=== PATIENT | male | born 1990 | race Caucasian/White ===

== ENCOUNTER 2020-07-05 16:39 | Emergency (ER) | payer BC, SELFPAY ==
[2020-07-05 16:45] VITALS: BP 129/79; PULSE 78; RESP 16; TEMP 36.8; O2SAT 100
--- NOTE | 2020-07-05 16:48 | ED.SKABFB ---
HPI - Skin/Abscess/Foreign Bdy General Chief complaint: Skin/Abscess/Foreign Body Stated complaint: poison luisa Time Seen by Provider: 07/05/20 16:45 Source: patient and RN notes reviewed Mode of arrival: ambulatory Limitations: no limitations History of Present Illness HPI narrative: 29-year-old male presents with concern for poison luisa to the left side of the neck and left ear. Reports exposure to poison luisa on Thursday with rash appearing Thursday night. Denies intervention. Reports history of poison luisa reaction. Denies swollen lips, swollen tongue, difficulty swallowing, trouble breathing. MD complaint: rash Related Data Allergies Allergy/AdvReac Type Severity Reaction Status Date / Time No Known Allergies Allergy Unknown Unverified 10/04/18 18:15 Review of Systems Review of Systems: Narrative: CONSTITUTIONAL: Denies malaise, chills, sweats, or fever. EYES: Denies visual changes, redness, or discharge. ENT: Denies swollen lips, swollen tongue, difficulty swallowing CARDIOVASCULAR: Denies chest pain, palpitations, or edema. RESPIRATORY: Denies cough or dyspnea. GASTROINTESTINAL: Denies abdominal pain, nausea, vomiting, diarrhea SKIN: Reports itchy rash on the left side of the neck and ear All systems reviewed & are unremarkable except as noted in HPI and below PMFSH Social History Social History Gender identity (if verbalized by the patient): Male Comments At time of signature, agree with nursing past medical, surgical, social and family history. There is no relevant family history pertinent to the presenting complaint Exam Narrative: Exam Narrative: GENERAL: Well-appearing, well-nourished, and in no acute distress. HEAD: Normocephalic, atraumatic. EYES: PERRLA, conjunctivae clear, and EOMI. ENT: Mucous membranes moist. Oropharynx without edema, erythema or lesions. NECK: Supple. No lymphadenopathy CHEST: Clear to auscultation. No respiratory distress. HEART: Regular rate and rhythm. SKIN: Warm, dry. Patches of erythematous plaque, without vesicles noted to the left-sided neck and ear NEURO: Alert and oriented x3. PSYCH: Normal mood and affect Course Course Emergency Course: Patient is aware of diagnosis, understands and agrees to treatment plan. Anticipatory guidance given. Patient agrees to follow-up as directed and is aware of reasons to seek care at the emergency department. Portions of this record may have been created with voice recognition software Vital Signs Vital signs: Vital Signs Temperature 98.2 F 07/05/20 16:45 Pulse Rate 78 07/05/20 16:45 Respiratory Rate 16 07/05/20 16:45 Blood Pressure 129/79 07/05/20 16:45 Pulse Oximetry 100 07/05/20 16:45 Temperature 98.2 F 07/05/20 16:45 Pulse Rate 78 07/05/20 16:45 Respiratory Rate 16 07/05/20 16:45 Blood Pressure 129/79 07/05/20 16:45 Pulse Oximetry 100 07/05/20 16:45 Reviewed. Critical Care Time Critical Care Time Critical Care Time: No Discharge Plan Discharge Clinical Impression: Contact dermatitis Qualifiers: Contact dermatitis type: irritant Contact dermatitis trigger: non-food plants Qualified Code(s): L24.7 - Irritant contact dermatitis due to plants, except food Patient Disposition: Home, Self-Care Condition: Stable Instructions: Poison Luisa (ED) Additional Instructions: Prevention is always better than treatment. Learn to identify poison luisa, oak, and sumac and avoid it. Wear long sleeves, long pants, shoes, and socks. If you touched the plant, try to keep your hands away from your eyes, mouth, and face. Wash the skin thoroughly with soap and cool water as soon as possible. Scrub under the fingernails with a brush to prevent spreading of the resin to other parts of the body by touching or scratching. Remember to wash any clothing with soap and hot water as the resin can persist for many months and cause further dermatitis. You should NOT use antihistamine creams or lotions, anesthet
== END 2020-07-05 16:58 | disposition home or self-care (01) ==
PROVIDERS: Emergency Provider Nurse Practitioner
DX: L23.7 Allergic contact dermatitis due to plants, except food (principal)
CPT/HCPCS: 99213; G0463

== ENCOUNTER 2022-05-19 14:20 | Outpatient (CLI) | payer BC, SELFPAY ==
--- NOTE | ~2022-05-19 | XR_ITS ---
EXAM: XR lumbar spine 2-3V DATE: 05/19/2022 15:51 HISTORY: M54.50 - Low back pain, unspecified . COMPARISON: None available. FINDINGS: Mild lumbar scoliosis. 5 nonrib-bearing lumbar-type vertebral bodies. Pedicles intact. Norm al vertebral body alignment. Vertebral body heights preserved. Mild disc space narrowing at L4-5 and L5-S1. Mild lower lumbar facet hypertrophy and sclerosis. No fracture or dislocation. IMPRESSION: Mild degenerative lumbar disc disease. Mild lower lumbar facet arthropathy. Reviewed, dictated and finalized at location K. IMPRESSION: Mild degenerative lumbar disc disease. Mild lower lumbar facet arth ropathy.
== END 2022-05-19 14:21 | disposition home or self-care (01) ==
PROVIDERS: PCP Family Medicine; Visit Provider Family Medicine
DX: M54.50 Low back pain, unspecified (principal); M51.36 Other intervertebral disc degeneration, lumbar region; M12.88 Other specific arthropathies, not elsewhere classified, other specified site
CPT/HCPCS: 72100

== ENCOUNTER 2023-01-14 07:51 | Outpatient (CLI) | payer BC, SELFPAY ==
[2023-01-14 20:22] LABS: Alanine Aminotransferase 38 U/L (6-50); Albumin Level 4.6 g/dL (3.5-5.1); Alkaline Phosphatase 76 U/L (38-126); Aspartate Amino Transferase 76 U/L (17-59)
== END 2023-01-14 07:52 | disposition home or self-care (01) ==
LOC: ANHBWCLAB 07:53
PROVIDERS: PCP Nurse Practitioner Adult Health; Visit Provider Nurse Practitioner Adult Health
DX: B35.1 Tinea unguium (principal)
CPT/HCPCS: 36415; 80076

== ENCOUNTER 2024-08-08 09:36 | Outpatient (CLI) | payer BC, SELFPAY ==
--- NOTE | ~2024-08-08 | XR_ITS ---
Lumbosacral Spine: AP and lateral views Clinical History: Pain Findings: The normal lordotic curve is maintained. The vertebral bodies and posterior elements are i ntact. The intervertebral disc spaces are preserved. There is mild facet arthropathy from L4 through S1. The sacroiliac joints are normally outlined. Impression: Minimal degenerative change, as above. Reviewed, dictated and finalized at location . Impression: Minimal degenerative change, as above.
--- OUTSIDE RECORDS SUMMARY | 2024-08-08 10:25 | XMS_ITS | Clinical Summary ---
Author Organization [facility] [address] Address [address] [place] [address] Care Team Providers Care Electrician Locomotive Name Role Phone Jasmeet Trevino MD Primary Care Provider [phone] [phone] Allergies Active Allergy Reactions Criticality Noted Date Comments Mold Cough Low 11/17/2019 Medications No known medications Active Problems Problem Noted Date Diagnosed Date Low back pain 11/17/2019 Assessment & Plan (11/17/2019 1:30 PM CDT): With positive straight leg, possible herniated disc; pain does not impact ability to work; low concern for needing imaging at this time -will get imaging if symptoms worsen or pain begins to radiate down leg -referral to PT Routine adult health maintenance 11/17/2019 Assessment & Plan (11/17/2019 1:31 PM CDT): Check routine labs today Smokeless tobacco use 11/17/2019 Assessment & Plan (11/17/2019 1:31 PM CDT): Discussed health risks with patient, patient is not interested in cessation at this time. Immunizations Immunization Administration Dates Next Due Influenza, Unspecified 11/17/2019(Deferr ed: Patient Refused),03/02/2019(Deferred: Patient Refused) Surgical History Surgery Date Site/Laterality Comments VASECTOMY 08/31/2019 - 09/30/2019 Bilateral Medical History Medical History Date Comments Hx Other Medical sutures below e ye Asthma Asthma Family History Medical History Relation Name Comments Diabetes Maternal Grandfather Heart disease Maternal Grandfather Hyperlipidemia Maternal Grandfather Alcohol abuse Other 1 Family history of Alcoholism; Coronary artery disease Other 2 Fami ly history of Coronary artery disease; Hypertension Other 3 Family history of Hypertension; Relation Name Status Comments Father Alive Maternal Grandfather Alive Mother Alive Other 1 Other 2 Other 3 Social History Tobacco Use Types Packs/Day Years Used Date Smoking Tobacco: Former Smokeless Tobacco: Current Chew Alcohol Use Standard Drinks/Week Comments No 0 (1 standard drink = 0.6 oz pur e alcohol) PHQ-2 Answer Date Recorded PHQ-2 Total Score (If total score is 3 or more points, staff should administer the PHQ-9) 0 11/17/2019 Sex and Gender Information Value Date Recorded Sex Assigned at Not on file 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 Gender Identity Not on file Sexual Orientation Not on file Obstetrics History Last Filed Vital Signs Vital Sign Reading Time Taken Comments Blood Pressure 100/74 11/17/2019 1:01 PM CDT Pulse 76 11/17/2019 1:01 PM CDT Temperature 36.5 C (97.7 F) 11/17/2019 1:01 PM CDT Respiratory Rate 16 11/17/2019 1:01 PM CDT Oxygen Saturation 99% 11/17/2019 1:01 PM CDT Inhaled Oxygen Concentration - - Weight 99.8 kg (220 lb) 11/17/2019 1:01 PM CDT Height 180.3 cm (5' 11) 11/17/2019 1:01 PM CDT Body Mass Index 30.68 11/17/2019 1:01 PM CDT Plan of Treatment Not on file Insurance [employer] Care Teams Electrician Locomotive Relationship Specialty Start Date End Date Jasmeet Trevino MD [address] [place] [address] PCP - General 11/18/19
--- OUTSIDE RECORDS SUMMARY | 2024-08-08 10:25 | XMS_ITS | Clinical Summary ---
Author Organization [facility] Address [address] [place] [address] Care Team Providers Care Communication Skills Instructor Name Role Phone Chapito Bruner MD Primary Care Provider [phone] Source Comments [facility],non-owned Affiliates and Associated Physician Practices is amultiple site organization consisting of ambulatory clinics and hospital sitesin [place], [place], [place] and [place]. This disclosure is being madepursuant to the Care Everywhere program and may not contain all information available regarding this patient. Last updated 17.[facility] Allergies No known active allergies Medications * Be aware that medications may not be up to date on this document. Alwaysverify current medications with the patient. 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 Gender Identity Not on file Sexual Orientation Not on file Last Filed Vital Signs Vital Sign Reading Time Taken Comments Blood Pressure 118/60 06/20/2017 2:57 PM CDT Pulse - - Temperature 36.4 C (97.6 F) 06/20/2017 2:57 PM CDT Respiratory Rate - - Oxygen Saturation 97% 06/20/2017 2:57 PM CDT Inhaled Oxygen Concentration - - Weight 95.3 kg (210 lb) 06/20/2017 2:57 PM CDT Height 182.9 cm (6') 06/20/2017 2:57 PM CDT Body Mass Index 28.48 06/20/2017 2:57 PM CDT Plan of Treatment Health Maintenance Due Date Last Done Comments HIV SCREENING 10/15/2007 HEPATITIS C SCREENING 10/10/2010 DTAP/TDAP/TD VACCINES (1 - Tdap) 10/15/2011 HEPATITIS B VACCINE (1 of 3 - 19+ 3-dose series) 10/15/2011 COVID-19 VACCINE ( - 2023-2 5 season) 2023 DEPRESSION SCREENING 03/02/2024 INFLUENZA VACCINE (Season Ended) 2024 ZOSTER VACCINE (1 of 2) 2042 HIB VACCINE Aged Out No longer eligi ble based on patient's age to complete this topic HPV VACCINE Aged Out No longer eligi ble based on patient's age to complete this topic MENINGOCOCCAL (Group B) VACC INE SHARED DECISION-MAKING Aged Out No longer eligibl e based on patient's age to complete this topic MENINGOCOCCAL GROUPS A/C/Y/W VACCINE Aged Out No longer eligible b ased on patient's age to complete this topic PNEUMOCOCCAL VACCINE Aged Out No long er eligible based on patient's age to complete this topic Insurance [employer] Care Teams Communication Skills Instructor Relationship Specialty Start Date End Date Chapito Bruner MD [address] [place] [address] PCP - General Internal Medicine 06/20/17
--- OUTSIDE RECORDS SUMMARY | 2024-08-08 10:25 | XMS_ITS | Referral Summary ---
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
== END 2024-08-08 09:37 | disposition home or self-care (01) ==
LOC: ANHBWCIMG 09:38
PROVIDERS: PCP Nurse Practitioner Adult Health; Visit Provider Nurse Practitioner Adult Health
DX: M54.50 Low back pain, unspecified (principal)
CPT/HCPCS: 72100

== ENCOUNTER 2024-12-29 06:26 | Outpatient (CLI) | payer BC, SELFPAY ==
--- OUTSIDE RECORDS SUMMARY | 2024-12-29 06:28 | XMS_ITS | Clinical Summary ---
Author Organization [facility] [employer] Address [address] [address] Care Team Providers Care Senior C Web Developer Name Role Phone Chapito Bruner MD Primary Care Provider [phone]- [phone] Source Comments [facility] [employer],non-owned Affiliates and Associated Physician Practices is amultiple site organization consisting of ambulatory clinics and hospital sitesin [place], [place], [place] and [place]. This disclosure is being madepursuant to the Care Everywhere program and may not contain all information available regarding this patient. Last updated 17.[facility] [employer] Allergies No known active allergies Medications * Be aware that medications may not be up to date on this document. Alwaysverify current medications with the patient. 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
--- OUTSIDE RECORDS SUMMARY | 2024-12-29 06:28 | XMS_ITS ---
Author Organization Unknown ENCOUNTERS Encounter Performer Location Date Diagnosis Diagnosis [place] [address] [id number] [facility] [place] [id number] [place] [address] [id number] [facility] [place] [id number] [place] [address] [id number] [facility] *Note: Encounters from your own facility or health system may be excluded. Allergies, Adverse Reactions, Alerts Allergen Type Severity Identification Date terbinafine drug allergy 3 [id number] Medications Name Date Quantity Days Supplied GPI Number
--- OUTSIDE RECORDS SUMMARY | 2024-12-29 06:28 | XMS_ITS | Clinical Summary ---
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 [id number] [place] [address] Care Teams Sales Professional Relationship Specialty Start Date End Date Jasmeet Trevino MD [address] [place] [address] PCP - General 11/18/19
[2024-12-29 19:02] LABS: Hematocrit 48.5 % (42.0-52.0); Hemoglobin 15.5 g/dL (14.0-18.0); Mean Corpuscular HGB Conc 32.0 g/dl (32-36); Mean Corpuscular Hemoglobin 28.4 pg (26-34); Mean Corpuscular Volume 89.0 fl (80-100); Platelet Count Result 289 k/mm3 (150-375); Red Blood Count 5.45 M/mm3 (4.6-6.20); White Blood Count 8.4 K/mm3 (4.5-10.0)
[2024-12-29 19:19] LABS: Alanine Aminotransferase 27 U/L (6-50); Albumin Level 4.5 g/dL (3.5-5.1); Alkaline Phosphatase 71 U/L (38-126); Anion Gap 7 mmol/L (4-12); Aspartate Amino Transferase 108 U/L (17-59); Bilirubin,Total 1.0 mg/dL (0.2-1.3); Blood Urea Nitrogen 13 mg/dL (9-20); Calcium 9.5 mg/dL (8.4-10.2); Carbon Dioxide 31 mmol/L (22-30); Chloride 101 mmol/L (98-107); Cholesterol 192 mg/dL (0-200); Estimated Glomerular Filt Rate > 60; Glucose 88 mg/dL (65-110); HDL Direct 40 mg/dL; Potassium 4.6 mmol/L (3.4-5.0); Sodium 139 mmol/L (137-145); Total Protein 7.6 g/dL (6.3-8.2); Triglycerides 120 mg/dL (<150)
== END 2024-12-29 06:27 | disposition home or self-care (01) ==
LOC: ANHBWCLAB 06:27
PROVIDERS: PCP Nurse Practitioner Adult Health; Visit Provider Nurse Practitioner Adult Health
DX: Z00.00 Encounter for general adult medical examination without abnormal findings (principal)
CPT/HCPCS: 36415; 80053; 80061; 85027

== ENCOUNTER 2025-01-11 07:53 | Outpatient (CLI) | payer BC, SELFPAY ==
--- NOTE | ~2025-01-11 | US_ITS ---
LIMITED ABDOMINAL ULTRASOUND INDICATION: R74.8 - Abnormal levels of other serum enzymes COMPARISON: None. FINDINGS: Liver: Visualized portions of the liver are normal. Common bile duct: Normal in size. Portal vein: Normal directional flow. There is phasicity of the waveform. Gallbladder: The gallbladder wall is normal in thickness. No stones or sludge were seen. Riojas's sign: Negative Pancreas: The imaged portions appear normal. Right kidney: Right kidney appears normal on the images provided. IMPRESSION: No significant abnormality identified Reviewed, dictated and finalized at location A. [facility]
== END 2025-01-11 07:54 | disposition home or self-care (01) ==
LOC: MICIMG 07:54
PROVIDERS: PCP Nurse Practitioner Adult Health; Visit Provider Nurse Practitioner Adult Health
DX: R74.8 Abnormal levels of other serum enzymes (principal)
CPT/HCPCS: 76705